=== PATIENT | male | born 1975 | race Caucasian/White ===

== ENCOUNTER 2020-01-29 18:49 | Emergency (ER) | payer MEDICAID, OTHER ==
[~2020-01-29] VITALS: Ht 175.3 cm; Wt 86.4 kg
[~2020-01-29 18:49] MED LIST: AMOX-419 PO; BUPR1FIL3 SL; CLON-371 PO; SUCR1TAB34 PO
[2020-01-29] MEDS ORDERED: ERYT1OIN6 LEFTEYE (21:48)
[2020-01-29 22:06] VITALS: BP 134/89
== END 2020-01-29 22:08 | disposition home or self-care (01) ==
LOC: ER 18:49
DX: H00.015 Hordeolum externum left lower eyelid (principal); K21.9 Gastro-esophageal reflux disease without esophagitis; G89.29 Other chronic pain; Z90.49 Acquired absence of other specified parts of digestive tract; F11.90 Opioid use, unspecified, uncomplicated; Z79.2 Long term (current) use of antibiotics; Z79.899 Other long term (current) drug therapy
CPT/HCPCS: 99283

== ENCOUNTER 2021-05-27 22:43 | Emergency (ER) | payer MEDICAID ==
[~2021-05-27] VITALS: Ht 175.3 cm; Wt 88.6 kg
[2021-05-28] MEDS ORDERED: ketorolac trometh inj. 60 MG/2 ML VIAL IM ONE (00:30)
--- NOTE | 2021-05-28 00:37 | NUR ---
PT'S PRIMARY RN BUSY W/ ANOTHER PT. PT REQUESTED PAIN MEDS. DR VILLEDA PUT IN ORDERS FOR IM TORADOL. PT MEDICATED.
[2021-05-28 02:09] LABS: CLARITY,URINE CLEAR (Clear); COLOR,URINE YELLOW (Yellow); GLUCOSE, URINE NEGATIVE (Neg); KETONES,URINE NEGATIVE (Neg); LEUKOCYTE ESTERASE ,URINE NEGATIVE (Neg); NITRITES, URINE NEGATIVE (Neg); OCCULT BLOOD,URINE NEGATIVE (Neg); PH,URINE 6.5 (4.8-8.0); PROTEIN,URINE NEGATIVE (Neg)
[2021-05-28 02:14] LABS: UA COLLECTION TYPE CLN CATCH MIDSTREAM
[2021-05-28] MEDS ORDERED: CefTRIAXone 250MG IM Kit w/LIDOcaine IM ONE (02:20)
[2021-05-28] MEDS ORDERED: LEVO500T90 PO (02:34)
[2021-05-28 03:27] VITALS: BP 134/67
== END 2021-05-28 03:34 | disposition home or self-care (01) ==
LOC: ER 22:43
DX: N45.1 Epididymitis (principal); N50.811 Right testicular pain; R30.9 Painful micturition, unspecified; K21.9 Gastro-esophageal reflux disease without esophagitis; G89.29 Other chronic pain; F11.90 Opioid use, unspecified, uncomplicated; Z90.89 Acquired absence of other organs; Z88.2 Allergy status to sulfonamides; Z79.2 Long term (current) use of antibiotics; Z79.899 Other long term (current) drug therapy
CPT/HCPCS: 76870; 81003; 93976; 96372; 99285; J0696; J1885

== ENCOUNTER 2022-05-17 04:28 | Emergency (ER) | payer MEDICAID ==
[~2022-05-17] VITALS: Ht 175.3 cm; Wt 89.1 kg
[2022-05-17 05:12] VITALS: BP 144/91
[2022-05-17] MEDS ORDERED: METH-806 PO (06:08)
== END 2022-05-17 06:17 | disposition home or self-care (01) ==
LOC: ER 04:29
DX: Z00.00 Encounter for general adult medical examination without abnormal findings (principal); K21.9 Gastro-esophageal reflux disease without esophagitis; G89.29 Other chronic pain; F11.90 Opioid use, unspecified, uncomplicated; Z90.49 Acquired absence of other specified parts of digestive tract; Z88.2 Allergy status to sulfonamides; Z79.899 Other long term (current) drug therapy
CPT/HCPCS: 99283

== ENCOUNTER 2023-09-22 06:05 | Emergency (ER) | payer MEDICAID ==
[~2023-09-22] VITALS: Ht 175.3 cm; Wt 89.9 kg
[2023-09-22 06:13] VITALS: TEMP 97.9
[2023-09-22] MEDS: mag hydrox/Alum hydrox/simeth 30ml oral suspension PO ONE (07:20)
[2023-09-22] MEDS: ibuprofen tablet 400 MG TABLET PO ONE (07:20)
[2023-09-22] MEDS: acetaminophen 325mg tablet PO ONE (07:21)
[2023-09-22 09:27] VITALS: BP 127/76; PULSE 67; RESP 17; O2SAT 97
== END 2023-09-22 09:30 | disposition home or self-care (01) ==
LOC: ER 06:06
DX: G89.29 Other chronic pain (principal); M54.9 Dorsalgia, unspecified; K21.9 Gastro-esophageal reflux disease without esophagitis; F17.200 Nicotine dependence, unspecified, uncomplicated; F11.90 Opioid use, unspecified, uncomplicated; Z90.49 Acquired absence of other specified parts of digestive tract; Z88.2 Allergy status to sulfonamides; Z79.2 Long term (current) use of antibiotics; Z79.899 Other long term (current) drug therapy
CPT/HCPCS: 72070; 72100; 99284